=== PATIENT | male | born 1945 | race Caucasian/White ===

== ENCOUNTER 2022-01-27 01:14 | Day surgery (SDC) | payer MEDICARE, SELFPAY ==
[2022-01-14 15:09] VITALS: BMI 29.7
[2022-01-27 07:06] VITALS: BP 147/91; PULSE 72; RESP 18; TEMP 36.3; O2SAT 97
[2022-01-27] MEDS: LACTATED RINGERS 1,000 ML 150 ML IV CONT (07:13)
--- NOTE | 2022-01-27 07:17 | WPDANESEPPF ---
Anes - Initial Pre Proc Eval Procedure: Operation Date: 01/27/22 08:00 Proposed Procedures p Screening Colonoscopy - Isai Kitchen MD Date/Time: 01/27/22 07:17 Surgeon: Isai Kitchen MD Pre Op Diagnosis: hx of colon polyps Patient Data Age: 76 Gender: M Height: 1.74 m Weight: 92.6 kg Last Vital Signs Temp 36.3 C L 01/27/22 07:06 Pulse 72 01/27/22 07:06 Resp 18 01/27/22 07:06 BP 147/91 H 01/27/22 07:06 Pulse Ox 97 01/27/22 07:06 Allergies Allergy/AdvReac Type Severity Reaction Status Date / Time tamsulosin AdvReac Intermediate PASSED OUT Verified 01/27/22 07:01 AFTER TAKING IT Home Medications Medication Instructions Recorded Confirmed Type B12 1 cap PO DAILY 01/14/22 01/27/22 History aspirin [Adult Low Dose Aspirin] 81 mg PO DAILY 01/14/22 01/27/22 History finasteride 5 mg PO DAILY 01/14/22 01/27/22 History losartan 100 mg PO DAILY 01/14/22 01/27/22 History simvastatin 10 mg PO DAILY 01/14/22 01/27/22 History Patient hx anesthesia problems: none Family hx anesthesia problems: none Results Review: All pre-operative results and documents have been reviewed as part of the pre-operative evaluation. [facility] Past Medical History Medical History (Updated 01/27/22 @ 07:17 by Sanjay Curran MD) HTN (hypertension) Hyperlipidemia Pacemaker Surgical History Surgical History (Updated 01/27/22 @ 07:17 by Sanjay Curran MD) History of permanent cardiac pacemaker placement Social History Social History Smoking status: Former smoker Tobacco type: cigars Additional smoking assessment comments: quit 20+ years ago Alcohol intake: former Substance use type: does not use Living arrangements: with family Spiritual care concerns: No Anes - Eval Final PreProcedure Day of Procedure 01/27/22 07:17 Patient weight: obese Heart: regular rate and rhythm Lungs: clear to auscultation Airway: Mallampati scale class II Neurological: alert and oriented Last oral intake: >/= 8 hours ASA classification: III Emergent: no Anesthetic plan: proceed Anesthesia type and monitoring: general GIVS and standard monitoring Results Review: All pre-operative results and documents have been reviewed as part of the pre-operative evaluation. Informed Consent: The patient's anesthetic plan and its attendant risks and benefits were discussed with the patient/family/POA. Questions were solicited and answers provided to the satisfaction of the patient/family/POA.
--- NOTE | 2022-01-27 07:29 | WPDGICN ---
Assessment and Plan Assessment and plan (1) History of colon polyps: Code(s): Z86.010 - Personal history of colonic polyps Status: Acute Assessment and Plan: Patient has a prior history of colon polyps in 2017. Plan is for surveillance colonoscopy now. Patient also has a family history of colon polyps in his mother. Further recommendations will be given after endoscopy. (2) Family history of colonic polyps: Code(s): Z83.71 - Family history of colonic polyps Status: Acute GI Consult Note Consult date/time: 01/27/22 07:29 HPI: Dayne Brady is a 76 year old male Presents for screening colonoscopy. Patient's current weight appetite and bowel movements are normal. He denies abdominal pain. He has had no bleeding. Patient did have adenomatous colon polyp removed from the colon 2016. Patient's family history is significant his mother had colon polyps as well. He presents today for neoplasia screening. Review of Systems Review of Systems: All systems reviewed & are unremarkable except as noted in HPI and below PMFSH Past Medical History Medical History (Updated 01/27/22 @ 07:31 by Isai Kitchen MD) HTN (hypertension) Hyperlipidemia Pacemaker Surgical History Surgical History (Updated 01/27/22 @ 07:17 by Sanjay Curran MD) History of permanent cardiac pacemaker placement Social History Social History Smoking status: Former smoker Tobacco type: cigars Additional smoking assessment comments: quit 20+ years ago Alcohol intake: former Substance use type: does not use Living arrangements: with family Spiritual care concerns: No Meds Home Medications and Allergies Home Medications Medication Instructions Recorded Confirmed Type B12 1 cap PO DAILY 01/14/22 01/27/22 History aspirin [Adult Low Dose Aspirin] 81 mg PO DAILY 01/14/22 01/27/22 History finasteride 5 mg PO DAILY 01/14/22 01/27/22 History losartan 100 mg PO DAILY 01/14/22 01/27/22 History simvastatin 10 mg PO DAILY 01/14/22 01/27/22 History Allergies Allergy/AdvReac Type Severity Reaction Status Date / Time tamsulosin AdvReac Intermediate PASSED OUT Verified 01/27/22 07:01 AFTER TAKING IT Vital Signs Vital Signs - 24 hr 01/27/22 07:06 Temperature 97.4 F L Pulse Rate 72 Respiratory Rate 18 Blood Pressure 147/91 H Pulse Oximetry 97 Exam Narrative: Fit physical exam reveals patient be alert. Vital signs stable. HEENT exam is unremarkable. Patient is anicteric. Lungs are clear to auscultation and percussion. Heart is without murmur or extra sounds. Abdominal exam bowel sounds are present soft nontender with no hepatosplenomegaly. Digital external rectal exam is normal.
[2022-01-27 08:11] VITALS: BP 136/81; PULSE 68; RESP 17; O2SAT 96
[2022-01-27 08:21] VITALS: BP 155/95; PULSE 67; RESP 13; O2SAT 96
[2022-01-27 08:31] VITALS: BP 156/94; PULSE 62; RESP 15; O2SAT 96
== END 2022-01-27 08:43 | disposition home or self-care (01) ==
PROVIDERS: PCP Physician Assistant Medical; Visit Provider Internal Medicine Gastroenterology
PROC: 0DJD8ZZ Inspection of Lower Intestinal Tract, Via Natural or Artificial Opening Endoscopic (ICD-10-PCS; CPT 45378; principal; 2022-01-27 08:00)
DX: Z12.11 Encounter for screening for malignant neoplasm of colon (principal); K63.5 Polyp of colon; K64.8 Other hemorrhoids; K57.30 Diverticulosis of large intestine without perforation or abscess without bleeding; Z83.71 Family history of colonic polyps; I10 Essential (primary) hypertension; E78.5 Hyperlipidemia, unspecified; Z95.0 Presence of cardiac pacemaker; Z87.891 Personal history of nicotine dependence; Z79.82 Long term (current) use of aspirin; E66.9 Obesity, unspecified; Z68.30 Body mass index [BMI] 30.0-30.9, adult
CPT/HCPCS: 45385; 88305; J2704; J7120

== ENCOUNTER 2023-08-07 14:54 | Outpatient (CLI) | payer MEDICARE, SELFPAY ==
--- NOTE | ~2023-08-07 | CT_ITS ---
EXAMINATION: CT brain wo con DATE: 08/07/2023 15:33 INDICATION: Visual disturbances TECHNIQUE: Computed tomography (CT) of the head was performed without intravenous contrast. The dose- length product was 681.00 mGy-cm. Automated exposure control and iterative reconstruction technique w ere employed. COMPARISON: None FINDINGS: Generalized atrophy. There are scattered moderate-severe periventricular and subcortical wh ite matter changes, most likely related to small vessel ischemic disease (microangiopathy). No ventri culomegaly or midline shift. There is intracranial atherosclerosis. There are chronic bilateral lacun ar infarctions of the subinsular white matter. No acute intracranial hemorrhage, infarction or mass. Paranasal sinuses and mastoids are pneumatized. No depressed skull fractures. Midline sagittal images demonstrate a normal corpus callosum and craniovertebral junction. IMPRESSION: 1. No acute intracranial abnormality. 2: Chronic bilateral lacunar infarctions. 3: Chronic age-related findings. Reviewed, dictated and finalized at location .
== END 2023-08-07 14:55 | disposition home or self-care (01) ==
PROVIDERS: PCP Physician Assistant Medical; Visit Provider Physician Assistant Medical
DX: H53.8 Other visual disturbances (principal); R51.9 Headache, unspecified; R20.2 Paresthesia of skin; I63.81 Other cerebral infarction due to occlusion or stenosis of small artery
CPT/HCPCS: 70450